=== PATIENT | female | born 1940 | race Caucasian/White ===

== ENCOUNTER 2024-11-22 08:52 | Emergency (ER) | payer MEDICARE, SELFPAY ==
--- NOTE | ~2024-11-22 | XR_ITS ---
CHEST RADIOGRAPH, PA AND LATERAL CLINICAL HISTORY: cough X 3 MONTHS . COMPARISON: 06/13/2015 TECHNIQUE: PA and lateral views of the chest. FINDINGS The cardiomediastinal silhouette is obscured. Large bilateral pleural effusions, right greater than left. Pleural thickening and scar formation within the left mid to upper lung field. Biapical scarring is also noted. IMPRESSION: Large bilateral pleural effusions with left sided pleural thickening and biapical scarring. Reviewed, dictated and finalized at location A. IMPRESSION: Large bilateral pleural effusions with left sided pleural thickening and biapic al scarring.
[2024-11-22 08:49] VITALS: BP 119/77; PULSE 61; RESP 18; TEMP 37.2; O2SAT 98
--- NOTE | 2024-11-22 08:57 | ECG_ITS ---
Test Date: 2024-11-22 09:02:56 Measurements Intervals Rodney Rate: 65 P: 21 VA: 123 QRS: 17 QRSD: 89 T: 15 QT: 366 QTc: 381 Interpretive Statements SINUS RHYTHM NONSPECIFIC ST & T-WAVE ABNORMALITY No previous ECG available for comparison Electronically Signed On 11-22-2024 13:03:04 CDT by Davide Nobles M.D.
[2024-11-22 09:01] VITALS: RESP 18; O2SAT 98
[2024-11-22 09:19] LABS: Hematocrit 37.0 % (37.0-47.0); Hemoglobin 11.8 g/dL (12.0-15.0); Mean Corpuscular HGB Conc 31.9 g/dl (32-36); Mean Corpuscular Hemoglobin 27.6 pg (26-34); Mean Corpuscular Volume 86.7 fl (80-100); Platelet Count Result 341 k/mm3 (150-375); Red Blood Count 4.27 M/mm3 (4.2-5.4); White Blood Count 17.4 K/mm3 (4.5-10.0)
--- NOTE | 2024-11-22 09:37 | ED_ITS ---
HPI - Recheck/Abnormal Lab/Rx General Chief Complaint: Recheck/Abnormal Lab/Rx Stated Complaint: critical labs & pulm. edema Time Seen by Provider: 11/22/24 09:01 History of Present Illness HPI narrative: 84-year-old female with history of COPD, Alzheimer's dementia presents to the ED via EMS from [facility] for abnormal labs. Patient had lab work drawn yesterday which showed a potassium of 2.8 white blood cell count of 20.61. She had also had a chest x-ray performed yesterday which showed cardiomegaly with CHF and some increased interstitial markings of the lungs may be secondary to earlier subtle interstitial pulmonary edema. No history of CHF per chart review but she was prescribed Lasix yesterday. The patient states she has had a productive cough with green sputum for the past 3 months. She denies any chest pain or shortness of breath, lower extremity edema, fever, abdominal pain, N/V/D, dysuria or hematuria. Patient is A&O x4 at baseline. Related Data Allergies Allergy/AdvReac Type Severity Reaction Status Date / Time aspirin Allergy Unknown Verified 06/13/15 14:10 cefadroxil Allergy Unknown Verified 06/13/15 14:10 diflunisal Allergy Unknown Verified 06/13/15 14:10 erythromycin base Allergy Unknown Verified 06/13/15 14:10 Sulfa (Sulfonamide Allergy Unknown Verified 06/13/15 14:10 Antibiotics) Review of Systems 2 Review of Systems: All systems reviewed & are unremarkable except as noted in HPI and below Exam 2 Narrative: GENERAL: Well-appearing, well-nourished, and in no acute distress. HEAD: Normocephalic, atraumatic. EYES: PERRLA and EOMI. ENT: Nares clear, no rhinorrhea or epistaxis. Mucous membranes moist. NECK: Supple. CHEST: Clear to auscultation. No respiratory distress. Coughing on exam, productive with green sputum HEART: Regular rate and rhythm. No murmur heard. Normal peripheral pulses. ABDOMEN: Soft, nontender, nondistended, normal active bowel sounds. EXTREMITIES: Normal range of motion. No edema. SKIN: Warm, dry, no rash. NEURO: No focal deficits. Alert and oriented x3 Course Vital Signs Vital signs: Vital Signs Temperature 98.9 F 11/22/24 08:49 Pulse Rate 61 11/22/24 08:49 Respiratory Rate 18 11/22/24 08:49 Blood Pressure 119/77 11/22/24 08:49 Pulse Oximetry 98 11/22/24 08:49 Oxygen Delivery Room Air 11/22/24 08:49 Temperature 97.8 F 11/22/24 12:01 Pulse Rate 75 11/22/24 12:01 Respiratory Rate 16 11/22/24 12:01 Blood Pressure 124/78 11/22/24 12:01 Pulse Oximetry 100 11/22/24 12:01 Oxygen Delivery Room Air 11/22/24 08:49 MDM - Recheck/Abnormal Lab/Rx MDM Narrative Medical decision making narrative: 84-year-old female with history of COPD and Alzheimer's presents to the ED from [facility] for lab recheck. Patient had labs drawn yesterday which showed hypokalemia of 2.8 and leukocytosis of 20. Also had a chest x-ray performed which showed pulmonary edema. On arrival to the ED the patient has no complaints other than a productive cough for 3 months. She is afebrile and nontoxic appearing and satting 98% on room air in no respiratory distress. She is actively coughing on exam but otherwise lung sounds are clear. EKG shows normal sinus rhythm with a rate of 65 ppm, normal CA interval, normal QRS duration, normal QTC, no ST elevations or depressions. Troponin is undetectable. Lab work shows leukocytosis of 17.4 with 12% band neutrophils. Chemistries with hypokalemia of 2.9. Magnesium normal. AST mildly elevated at 43 alk-phos mildly elevated 163, ALT and total bilirubin within normal limits. Patient has no abdominal pain. ProBNP is elevated to 1120, no prior for comparison. Chest x-ray shows large bilateral pleural effusions with left-sided pleural thickening and biapical scarring. Pleural effusions may be secondary to pneumonia versus new onset CHF. Attempted to orally and intravenously repleted potassium with 40 mEq of oral potassium 20 mEq of IV potassium. Patient drank half of her oral potassium (20mEq) before spilling it, and received half of IV potassium (10mEq) before becoming agitated. She was then given another 20mEq of potassium orally for a total of 50mEq potassium. Patient updated on results. Remains resting comfortably in exam bed. No hypoxia or labored breathing. She is adamantly requesting to be discharged back to [facility] and states she does not want to be here. I discussed concern for new onset CHF and pneumonia and offered admission for antibiotics and echocardiogram however patient declined states she would like to go to the detention. Patient's chart reviewed and she is comfort care measures only, DNR. I contacted patient's POA/son, Dieudonne Smalls, who is in agreement with the plan. Will start the patient on Levoquin (allergy to cephalosporins) prednisone and albuterol to cover possible COPD exacerbation. She is prescribed 40 mg of Lasix by the detention which I advised continuation of. Will also provide short course of potassium supplementation for home. Advised to repeat labs in the next 48 hours. ED return precautions provided. Patient discharged in stable condition. Lab Data 11/22/24 09:09 11/22/24 09:09 Labs: Lab Results 11/22/24 11/22/24 Range/Units 09:09 11:08 WBC 17.4 H (4.5-10.0) K/mm3 RBC 4.27 (4.2-5.4) M/mm3 Hgb 11.8 L (12.0-15.0) g/dL Hct 37.0 (37.0-47.0) % MCV 86.7 (80-100) fl MCH 27.6 (26-34) pg MCHC 31.9 L (32-36) g/dl RDW 14.0 (11.5-14.5) % Plt Count 341 (150-375) k/mm3 MPV 9.0 (7.4-10.4) fl Immature Gran % (Auto) Not Reportable Neut % (Auto) Not Reportable Lymph % (Auto) Not Reportable [place] % (Auto) Not Reportable Eos % (Auto) Not Reportable Baso % (Auto) Not Reportable Lymph # (Auto) Not Reportable [place] # (Auto) Not Reportable Eos # (Auto) Not Reportable Baso # (Auto) Not Reportable Abs Immat Gran (auto) Not Reportable Absolute Neuts (auto) Not Reportable Absolute Nucleated RBC Not Reportable Total Counted 100 Neutrophils % (Manual) 70 (46-73) % Band Neutrophils % 12 H (0-6) % Lymphocytes % (Manual) 10 L (18-44) % Monocytes % (Manual) 5 (3-9) % Eosinophils % (Manual) 2 (0-4) % Basophils % (Manual) 1 (0-1) % Nucleated RBC % Not Reportable Abs Neuts (Manual) 14.26 H (1.3-6.7) K/mm3 Abs Lymphs (Manual) 1.74 (1.1-4.5) K/mm3 Abs Monocytes (Manual) 0.87 (0.1-0.90) K/mm3 Absolute Eos (Manual) 0.34 (0.02-0.50) K/mm3 Abs Basophils (Manual) 0.17 H (0.0-0.1) K/mm3 Platelet Estimate Adequate (Adequate) Hypochromasia 1+ Schistocytes None seen PT 13.8 (11.1-14.7) Seconds INR 1.1 APTT 34.9 (22.3-36.8) Seconds Sodium 139 (137-145) mmol/L Potassium 2.9 L (3.4-5.0) mmol/L Chloride 102 (98-107) mmol/L Carbon Dioxide 31 H (22-30) mmol/L Anion Gap 6 (4-12) mmol/L BUN 15 (7-17) mg/dL Creatinine 0.71 (0.7-1.0) mg/dL Estim Creat Clear Calc 38 ml/min Estimated GFR > 60 (59 - ) Glucose 108 (65-110) mg/dL Calcium 9.7 (8.4-10.2) mg/dL Magnesium 2.0 (1.6-2.3) mg/dL Total Bilirubin 0.3 (0.2-1.3) mg/dL AST 43 H (14-36) U/L ALT 19 (6-35) U/L Alkaline Phosphatase 163 H (38-126) U/L Troponin I < 0.012 (0.000-0.034) ng/mL NT-Pro-B Natriuret Pep 2120 H (19.9-100) pg/mL Total Protein 6.1 L (6.3-8.2) g/dL Albumin 3.0 L (3.5-5.1) g/dL Urine Color Yellow (Yellow) Urine Appearance Clear (Clear) Urine pH 6.5 (5.0-9.0) Ur Specific [place] 1.012 (1.001-1.035) Urine Protein Negative (Negative) mg/dL Urine Glucose (UA) Negative (Negative) mg/dL Urine Ketones Trace H (Negative) mg/dL Ur Blood (Man) Negative (Negative) Urine Nitrate Negative (Negative) Urine Bilirubin Negative (Negative) Urine Urobilinogen 1.0 (<2.0) mg/dL Leukocyte Esterase Rfl Negative (Negative) CHERYL/UL Discharge Plan Discharge Clinical Impression: Pleural effusion, Hypokalemia Pneumonia Qualifiers: Pneumonia type: due to unspecified organism Laterality: unspecified laterality Lung location: unspecified part of lung Qualified Code(s): J18.9 - Pneumonia, unspecified organism Patient Disposition: [facility] Living Condition: Stable Instructions: Antibiotic Form, Hypokalemia (ED), Pleural Effusion (DC), Bacterial Pneumonia (DC) Additional Instructions: Take medications as directed. Please have your labs redrawn in 48 hours. Follow-up closely with her primary care provider and mapper. Return to the emergency department if you develop chest pain, shortness of breath, fever or other concerning symptoms. Patient Language: Luxembourger Prescriptions: New levofloxacin 750 mg tablet 750 mg PO DAILY Qty: 7 0RF prednisone 20 mg tablet 40 mg PO DAILY Qty: 10 0RF albuterol sulfate 90 mcg/actuation HFA aerosol inhaler 1 inh inhalation QID PRN (Reason: shortness of breath or wheezing) Qty: 6.7 0RF potassium chloride [K-Tab] 20 mEq tablet extended release 20 meq PO DAILY Qty: 5 0RF Follow-up/Referrals: Harms,Ricky Hatfield M.D. [Primary Care Provider] - Nadia Bush MD [Physician] -
[2024-11-22 09:40] LABS: Band Neutrophils Percent 12 % (0-6); Basophils Absolute Manual 0.17 K/mm3 (0.0-0.1); Basophils Percent Manual 1 % (0-1); Eosinophils Absolute Manual 0.34 K/mm3 (0.02-0.50); Eosinophils Percent Manual 2 % (0-4); Lymphocytes Absolute Manual 1.74 K/mm3 (1.1-4.5); Lymphocytes Percent Manual 10 % (18-44); Monocytes Absolute Manual 0.87 K/mm3 (0.1-0.90); Monocytes Percent Manual 5 % (3-9); Neutrophils Absolute Manual 14.26 K/mm3 (1.3-6.7); Neutrophils Percent Manual 70 % (46-73); Total Cells Counted 100
[2024-11-22 09:41] LABS: Hypochromasia 1+; Schistocytes None Seen
[2024-11-22 09:47] LABS: Alanine Aminotransferase 19 U/L (6-35); Albumin Level 3.0 g/dL (3.5-5.1); Alkaline Phosphatase 163 U/L (38-126); Anion Gap 6 mmol/L (4-12); Aspartate Amino Transferase 43 U/L (14-36); Bilirubin,Total 0.3 mg/dL (0.2-1.3); Blood Urea Nitrogen 15 mg/dL (7-17); Calcium 9.7 mg/dL (8.4-10.2); Carbon Dioxide 31 mmol/L (22-30); Chloride 102 mmol/L (98-107); Estimated CRCL calculation 38 ml/min; Estimated Glomerular Filt Rate > 60; Glucose 108 mg/dL (65-110); Potassium 2.9 mmol/L (3.4-5.0); Sodium 139 mmol/L (137-145); Total Protein 6.1 g/dL (6.3-8.2)
[2024-11-22 09:56] LABS: Magnesium 2.0 mg/dL (1.6-2.3)
[2024-11-22 10:02] LABS: INR 1.1; Prothrombin Time 13.8 Seconds (11.1-14.7)
[2024-11-22 10:03] LABS: Partial Thromboplastin Time 34.9 Seconds (22.3-36.8)
[2024-11-22 10:08] LABS: NT Pro B Type Natriuretic Pept 2120 pg/mL (19.9-100); Troponin I < 0.012 ng/mL (0.000-0.034)
--- NOTE | 2024-11-22 10:15 | PC.NURSE ---
This RN entered pts room to give ordered IV and PO potassium and pt was adamantly refusing potassium in any form. Pt states, I'm on a diet and I will not be taking those medicines. EDP Shahla aware of pts refusal, no new orders at this time.
[2024-11-22] MEDS: KCL 20 MEQ/SW 100 ML 100 ML 50 MEQ IVPB (10:40)
[2024-11-22] MEDS: POTASSIUM CHLORIDE 20 MEQ PACKET (FOR LIQUID) 40 MEQ PO (10:40)
[2024-11-22] MEDS: FUROSEMIDE INJ 40 MG/4 ML VIAL 20 MG IV PUSH (10:40)
--- NOTE | 2024-11-22 10:53 | PC.NURSE ---
Pt became very combative and verbally aggressive towards this RN. Pt refusing to wear monitors for vital signs. Verbal deescalation attempted, and failed. EDP Shahla aware, no new orders at this time.
[2024-11-22 11:32] LABS: Add Urine Microscopic? NO; Appearance Urine Clear (Clear); Glucose Urine UA Negative (Negative); Leukocyte Esterase Ur Negative LEU/UL (Negative); Nitrate Urine Negative (Negative); Specific Grav Ur 1.012 (1.001-1.035)
[2024-11-22] MEDS: POTASSIUM CHLORIDE 20 MEQ PACKET (FOR LIQUID) PO (11:45)
[2024-11-22 12:01] VITALS: BP 124/78; PULSE 75; RESP 16; TEMP 36.6; O2SAT 100
--- NOTE | 2024-11-22 12:22 | PC.NURSE ---
Attempted to call report on pt. Odalys Martinez assistant secretary states the nurses are busy and will have them call back for report.
== END 2024-11-22 12:28 ==
PROVIDERS: Emergency Medicine; Emergency Provider Physician Assistant; PCP Family Medicine
DX: J18.9 Pneumonia, unspecified organism (principal); J44.0 Chronic obstructive pulmonary disease with (acute) lower respiratory infection; J90 Pleural effusion, not elsewhere classified; E87.6 Hypokalemia; D72.829 Elevated white blood cell count, unspecified; G30.9 Alzheimer's disease, unspecified; F02.80 Dementia in other diseases classified elsewhere, unspecified severity, without behavioral disturbance, psychotic disturbance, mood disturbance, and anxiety; J81.1 Chronic pulmonary edema; Z66 Do not resuscitate
CPT/HCPCS: 36415; 71046; 80053; 81003; 83735; 83880; 84484; 85025; 85610; 85730; 93005; 96365; 96366; 96375; 99284; A9270; J1938; J2919; J3480